=== PATIENT | female | born 1980 | race Two or more races ===

== ENCOUNTER 2018-04-23 19:00 | Emergency (ER) | payer MEDICAID ==
--- NOTE | 2018-04-24 08:47 | Diagnostic Imaging Report ---
CT scan cervical spine HISTORY: Pain, trauma Total DLP equals 526 CTDI equals 29.0 Axial sections were obtained through the cervical spine. Additional sagittal and coronal reformatted images are provided. Alignment is normal. Degenerative spur formation noted about the endplates of C5 and C6. Spur formation results in a minimal extradural indentation on the anterior spinal canal at this level. No acute abnormalities. No fractures. The prevertebral soft tissues appear normal. IMPRESSION: 1. No acute abnormalities 2. Degenerative changes
--- NOTE | 2018-04-24 08:49 | Diagnostic Imaging Report ---
CT scan of the brain without contrast History: Headache, trauma Total DLP equals 681 CTDI equals 36.1 Axial sections were obtained from the base of the skull to the vertex. There is a normal ventricular system size. No focal parenchymal lesions are seen. No evidence of any mass effect or shift of midline structures. No extra-axial masses or abnormal fluid collections. Mucosal thickening noted about the left maxillary sinus. There is deformity of the nasal bones with an appearance that may be related to old trauma. Impression: 1. No acute intracerebral abnormalities 2. Mucosal thickening about the left maxillary sinus 3. 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
--- NOTE | 2018-04-24 12:39 | ER Physician Documentation ---
DATE OF SERVICE: 04/23/2018 HISTORY OF PRESENT ILLNESS: This patient is a 37-year-old female patient who presents to the Emergency Room complaining of headache and neck pain after an accidental injury. There was no report of loss of consciousness, altered level of consciousness, altered mental status. No visual or gait changes. No weakness, no dizziness, no vertigo, no paresthesias. No report of chest pain, shortness of breath, abdominal pain, nausea, vomiting, diarrhea, or constipation. The patient is eating and urinating well. PAST MEDICAL HISTORY: Per nurses' notes. MEDICATIONS: Per nursing notes. FAMILY HISTORY: Per nurses' notes. REVIEW OF SYSTEMS: Otherwise, noncontributory. The patient denies . PHYSICAL EXAMINATION: GENERAL: The patient is in no acute distress, alert and oriented x 3. VITAL SIGNS: Afebrile, vital signs stable. HEENT: Negative. Head is normocephalic, atraumatic. There is, however, questionable slight contusion at the occipital scalp and neck region. NECK: Supple. No cervical tenderness. No meningeal signs. CARDIOVASCULAR: Regular rate and rhythm. LUNGS: Clear with good breath sounds bilaterally. ABDOMEN: Soft, nontender, normoactive bowel sounds, no pulsatile masses. EXTREMITIES: No edema, clubbing or cyanosis. Gait within normal limits. NEUROLOGIC: Showed no focal signs. test was negative. CAT scans taken of the head and the head CT scan and the cervical C-spine CAT scans were negative for any fractures or dislocations. No acute injuries and no acute disease. TREATMENT: Cervical collar was offered to the patient. The patient was asymptomatic upon discharge and thus the patient was discharged with sprain care and strain care instructions, head injury instructions, bruise care instructions, headache instructions and neck pain instructions. Refer to neurosurgeon as soon as possible, refer to spinal specialist as soon as possible, refer to call or contact centre manager as soon as possible. Return to the Emergency Room as needed if existing signs and symptoms should reoccur and/or get worse and/or any other new signs or symptoms should occur. Aftercare instructions were given. Follow up care with primary physician in one day or as needed and return to the Emergency Room as needed if concerned. DIAGNOSES: Headaches, neck pain, head injury, neck injury, sprains and strains, cervical strain, scalp contusion. JOB# [id number]
== END 2018-04-23 21:13 | disposition home or self-care (01) ==
LOC: ER 19:00
DX: S13.9XXA Sprain of joints and ligaments of unspecified parts of neck, initial encounter (principal); S16.1XXA Strain of muscle, fascia and tendon at neck level, initial encounter; S00.03XA Contusion of scalp, initial encounter; X58.XXXA Exposure to other specified factors, initial encounter; Y93.89 Activity, other specified; Y92.89 Other specified places as the place of occurrence of the external cause; Y99.8 Other external cause status
CPT/HCPCS: 70450-TC; 72125-TC; 81025-TC; Z7502